=== PATIENT | female | born 1985 | race Caucasian/White ===

== ENCOUNTER → 2017-04-23 | Day surgery (SDC) | payer OTHER ==
[~2017-04-23] VITALS: Ht 152.4 cm; Wt 68.2 kg
[~2017-04-23] MED LIST: ACETAMINOPHEN 1000 MG/100 ML 100 ML IV ONE; ADVA100A INH; ALBU17I INH; AUGM875 PO; BIOF1TAB PO; BIOTCAP PO; CHLORHEXIDINE GLUCONATE 2 % 1 PACK (2 CLOTHS) TOPICAL PRN; CIPR500T2 PO; COBA1000 PO; DARV PO; DEXAMETHASONE SOD PHOS 4 MG/ML VIAL IV ONE; DILT60TA PO; DO NOT ADM ANY ANTICOAGULANT DRUGS PRN; DUONSOL2 NEB; FOLI800T PO; GLYCOPYRROLATE 1 MG/5 ML SYRINGE IV PUSH ONE; INSULIN HUMAN REGULAR 1,000 UNITS/10 ML VIAL SQ PRN; KETOROLAC TROMETHAMINE 60 MG/2 ML (IM) VIAL IM ONE; LACTATED RINGER'S 1000 ML IV PRN; LANTUS2P SQ; LIDOCAINE HCL 1% PF 5 ML AMPULE OTHER ONE; MEPERIDINE HCL 25 MG/ML VIAL IV ONE; METHYLENE BLUE 10 MG/ML VIAL OTHER ONE; METOPROLOL TARTRATE 25 MG TAB PO PRN; MONT10TA2 PO; NEOSTIGMINE 3 MG/3 ML SYR IV ONE; NOVOINJ3 SQ; ONDANSETRON HCL 4 MG/2 ML VIAL IV PUSH ONE; PANC1CAP PO; PHENYLEPH/NS 1000 MCG/10 ML SYR IV ONE; POTA10TA2 PO; POVIDONE IODINE 5% (ANTISEPSIS KIT) 4 APPLICATIONS EACH NARE PRN; PROPOFOL 200 MG/20 ML AMP IV ONE; ROCURONIUM INJ 50 MG/5 ML SYRINGE IV PUSH ONE; SODIUM CHLORID 0.9% 500 ML IV PRN; Z.0.BCPILL PO; ZYRT10TA12 PO
--- NOTE | 2017-04-23 10:20 | MP ---
cc: CHRISTINE JOHNSTON DATE OF SURGERY: 04/23/2017 PREOPERATIVE DIAGNOSIS Unexplained infertility. POSTOPERATIVE DIAGNOSIS 1. Endometriosis. 2. Pelvic adhesions. 3. Small uterine cavity. 4. Blocked fallopian tubes. PROCEDURE 1. D&C, hysteroscopic exam, which measured the endometrial cavity at 7 cm. 2. Laparoscopic exam with lysis of adhesions around the left ovary. 3. Peritoneal biopsies of endometriosis x2. 4. Coagulation of endometriosis. ANESTHESIA General endotracheal intubation. SURGEON Madison Johnston MD FINDINGS On examination under anesthesia the vagina was clean, the cervix was small and nulliparous without lesions, the uterus and adnexa could not be palpated. The hysteroscopic exam revealed a uterine cavity that measured to 7 cm. There was no submucous myoma or polyps on the hysteroscopic exam. Laparoscopic exam revealed several areas of endometriosis, one anterior to the uterus on the right; this was biopsied x2. There was some endometriosis around the left uterosacral ligament which was also coagulated and there was a firm adhesion of the left ovary to the pelvic sidewall which was taken down. The ovaries looked fairly normal. The fallopian tubes looked normal in length and caliber, but with chromotubation were completely blocked. The uterus looked normal in shape, contour and size. The posterior cul-de-sac was clean. The liver and GI tract looked normal. COMPLICATIONS None. COUNTS Correct. ESTIMATED BLOOD LOSS 10 cc. FLUIDS Crystalloid. CONDITION The patient tolerated the procedure well and went to the recovery room in good condition. DETAILS OF PROCEDURE The patient was taken to the operating room, identified by name band and verbally. She was given a general anesthetic, placed in the dorsal lithotomy position and prepped and draped in usual sterile fashion for laparoscopic surgery. A timeout was taken and examination under anesthesia with the above findings was carried out. A weighted speculum was placed into the vagina and the anterior lip of the cervix was grasped with a single-tooth tenaculum. The cervix was serially dilated and sounded to 7 cm. The hysteroscope was inserted. The entire endometrial cavity was carefully inspected without any lesions. A HUMI cannula was then placed and attention was turned to the umbilical area. A small subumbilical incision was made with an 11 blade and using a 5 mm trocar the abdomen was entered under direct vision without difficulty. A pneumoperitoneum was created with 3 liters of CO2. The entire pelvis and abdomen were visualized with the above findings. The first order of business was to take some biopsies of the endometriosis on the right side anterior and lateral to the uterus. Next, we coagulated that endometriosis and the endometriosis around the left uterosacral ligament. We then took the Kleppinger forceps and coagulated that adhesion to the left ovary to the pelvic sidewall and lysed that adhesion without difficulty. Both ovarian fossa were carefully inspected and there was no significant endometriosis in this area, but towards the cul-de-sac on the pelvic sidewall there was some scarring and red endometriosis, a minimal amount that could not be coagulated because of underlying vascular structures. At this time we added 30 cc of normal saline and released the air. The laparoscope was removed under direct vision and the air was released through the second and third punctures. The incisions were repaired with a 4-0 Monocryl subcuticular. R. MD LOGAN Olvera/YOMAIRA /9:44 AM /9:56 AM BARBARA
[2017-04-23 12:00] VITALS: BP 129/71; PULSE 97; RESP 18; TEMP 97.1; O2SAT 97
== END | disposition home or self-care (01) ==
LOC: HSDC 05:57
PROVIDERS: ATTEND Obstetrics & Gynecology
DX: N97.1 Female infertility of tubal origin (principal); N80.9 Endometriosis, unspecified; N73.6 Female pelvic peritoneal adhesions (postinfective)
CPT/HCPCS: 00840; 00952; 58350; 58558; 58662; 88305; J0131; J1100; J1885; J2175; J2370; J2405; J2710; J3010; J7120